=== PATIENT | male | born 1960 | race African-American/Black ===

== ENCOUNTER 2019-04-19 09:21 | Emergency (ER) | payer MEDICAID ==
[~2019-04-19] VITALS: Ht 175.3 cm; Wt 75.0 kg
[2019-04-19 09:48] VITALS: BP 140/88
[2019-04-19] MEDS ORDERED: GABA-533 PO (09:48)
[2019-04-19] MEDS ORDERED: ASPI81 PO (09:48)
[2019-04-19] MEDS ORDERED: METF-960 PO (09:48)
[2019-04-19 10:01] LABS: GLUCOSE,POINT OF CARE 262 MG/DL (70-110)
== END 2019-04-19 10:27 | disposition home or self-care (01) ==
LOC: EMS 09:23
DX: E11.65 Type 2 diabetes mellitus with hyperglycemia (principal); E11.40 Type 2 diabetes mellitus with diabetic neuropathy, unspecified; F11.90 Opioid use, unspecified, uncomplicated; Z76.0 Encounter for issue of repeat prescription; Z95.5 Presence of coronary angioplasty implant and graft; Z87.891 Personal history of nicotine dependence; Z88.1 Allergy status to other antibiotic agents; Z79.899 Other long term (current) drug therapy; Z79.84 Long term (current) use of oral hypoglycemic drugs